=== PATIENT | female | born 1985 | race Caucasian/White ===

== ENCOUNTER 2019-06-01 10:16 | Emergency (ER) | payer MEDICAID ==
[~2019-06-01] VITALS: Ht 154.9 cm; Wt 68.9 kg
[2019-06-01 10:16] VITALS: BP_SYST 127
--- NOTE | 2019-06-01 10:16 | NUR ---
BROUGHT BACK TO BED #4 AND TRIAGED. REPORT GIVEN TO EUGENIO
--- NOTE | 2019-06-01 10:30 | NUR ---
pt reports hitting the left side of her face on a water slide. Reports being nauseated yesterday only. Only c/o mild dizziness and h/a at the moment. No other c/o. Pt is alert and oriented.
--- NOTE | 2019-06-01 10:35 | NUR ---
ER at bedside examining patient.
[2019-06-01 11:03] VITALS: BP_SYST 127
--- NOTE | 2019-06-01 11:04 | NUR ---
Patient given written and verbal discharge instructions and verbalizes understanding. ER MD discussed with patient the results and treatment provided. Patient in stable condition. ID arm band removed. Patient educated on pain management and to follow up with PMD. Pain Scale 3/10. Pt did not watn any pain med to be given. Opportunity for questions provided and answered. Medication side effect fact sheet provided.
== END 2019-06-01 11:03 | disposition home or self-care (01) ==
LOC: SED 10:16
DX: S09.90XA Unspecified injury of head, initial encounter (principal); X58.XXXA Exposure to other specified factors, initial encounter; Y93.89 Activity, other specified; Y92.89 Other specified places as the place of occurrence of the external cause; Y99.8 Other external cause status
CPT/HCPCS: 99281